=== PATIENT | male | born 1990 | race Caucasian/White ===

== ENCOUNTER 2017-10-25 13:31 | Emergency (ER) | payer SELFPAY ==
[2017-10-25] MEDS ORDERED: Sodium Chloride 0.9% 1,000 ML IV SCH (13:45)
[2017-10-25] MEDS ORDERED: Lidocaine 1% 10 ML MDV INJECT ONE (13:45)
[2017-10-25] MEDS ORDERED: Midazolam 1 MG/ML 2 ML SDV IVPUSH ONE (13:45)
[2017-10-25] MEDS ORDERED: fentaNYL 100 MCG/2 ML SDV IVPUSH ONE (13:45)
--- NOTE | 2017-10-25 13:49 | EDM.PDOC ---
ED HPI GENERAL MEDICAL PROBLEM - General Chief Complaint: Laceration Stated Complaint: R ARM LAC Time Seen by Provider: 10/25/17 13:42 Source of Information: Reports: Patient History Limitations: Reports: No Limitations - History of Present Illness INITIAL COMMENTS - FREE TEXT/NARRATIVE: 77-year-old male presents the ED with an acute injury to his right distal forearm ulnar aspect. He actually has 2 wounds to the forearm. He reports that he went through a car door window glass. His resulted in deep laceration to the ulnar aspect of the right forearm with tendons and bone exposed and foreign bodies evident. Also deep laceration to the proximal extensor surface of the forearm which does not go down to the bone or exposed tendons. He has full sensation on his fingers. 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 Clinically the tendons appear to be intact. The wound is heavily contaminated however. Last tetanus toxoid was about 2 years ago. Of note patient is right-hand dominant. Onset: Today Onset Date: 10/25/17 Onset Time: 13:00 Duration: Minutes: Location: Reports: Upper Extremity, Right (Right upper extremity wounds to the forearm.) Quality: Reports: Ache, Stabbing Severity: Moderate Improves with: Reports: None Worsens with: Reports: Movement Context: Reports: Trauma. 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: Other (see below) (None.) Right Lower Arm Pain Score (Numeric/FACES): 10 - Related Data Allergies Allergy/AdvReac Type Severity Reaction Status Date / Time No Known Allergies Allergy Verified 10/25/17 15:37 Home Meds: Home Meds Doxycycline [Vibramycin] 100 mg PO BID #20 cap 10/25/17 [Rx] Past Medical History - Past Health History Medical/Surgical History: Denies Medical/Surgical History Social & Family History - Family History Family Medical History: Noncontributory - Tobacco Use Smoking Status *Q: Never Smoker - Recreational Drug Use Recreational Drug Use: No - Living Situation & Occupation Occupation: Employed ED ROS GENERAL - Review of Systems Review Of Systems: See Below Constitutional: Reports: No Symptoms HEENT: Reports: No Symptoms Respiratory: Reports: No Symptoms Cardiovascular: Reports: No Symptoms Endocrine: Reports: No Symptoms GI/Abdominal: Reports: No Symptoms : Reports: No Symptoms Musculoskeletal: Reports: Other (Acute soft tissue injuries to the right forearm in 2 places.) Skin: Reports: Other (Lacerations to right forearm) Neurological: Reports: No Symptoms Psychiatric: Reports: No Symptoms Hematologic/Lymphatic: Reports: No Symptoms ED EXAM, SKIN/RASH Exam: See Below Exam Limited By: No Limitations General Appearance: Alert, Moderate Distress (Very anxious and distressed.) Peripheral Pulses: 3+: Radial (R) Extremities: Other (Injuries to the right forearm appreciated. Has a deep gouge laceration to the distal extensor surface of the forearm with exposed tendons extensor surface and ulnar surface. His railroad wheels and axle inspector strength is still full. He has full sensation in his ulnar and radial nerve distributions. He has a second laceratio 3.5 cm proximal extensor for surface of the forearm. Both wounds will have to be cleansed and sutured. The distal wound will have to be explored and irrigated extensively. It will also take complex closure.) Neurological: Alert, Oriented, CN II-XII Intact, Normal Cognition, Normal Gait Psychiatric: Normal Affect, Normal Mood Skin: Warm, Dry, Intact, Normal Color, No Rash ED SKIN PROCEDURES - Laceration/Wound Repair Right Upper Proximal Arm Lac/Wound length In cm: 3.5 Appearance: Subcutaneous, Mildly Contaminated Distal NVT: Neuro & Vascular Intact, No Tendon Injury Anesthetic Type: Local Local Anesthesia - Lidocaine (Xylocaine): 1% Plain Local Anesthetic Volume: Other (10 mL) Skin Prep: Saline Saline Irrigation (cc's): 150 Closed with: Sutures Suture Size: 3-0 # of Sutures: 9 Suture Type: Nylon, Interrupted, Simple Course - Vital Signs Last Recorded V/S: Last Vital Signs Temp 36.2 C 10/25/17 13:38 Pulse 72 10/25/17 13:38 Resp 16 10/25/17 13:38 BP 101/84 10/25/17 13:38 Pulse Ox 99 10/25/17 13:38 - Orders/Labs/Meds Orders: Active Orders 24 hr Category Date Time Status Forearm 2V Rt [CR] Stat Exams 10/25/17 13:46 Taken Meds: Medications Discontinued Medications Generic Name Dose Route Start Last Admin Trade Name Freq PRN Reason Stop Dose Admin Doxycycline Hyclate 200 mg 10/25/17 15:37 10/25/17 15:51 Vibramycin PO 10/25/17 15:38 200 mg ONETIME ONE Administration Fentanyl 100 mcg 10/25/17 13:45 10/25/17 14:07 Sublimaze IVPUSH 10/25/17 13:46 100 mcg ONETIME ONE Administration Sodium Chloride 1,000 mls @ 150 mls/hr 10/25/17 13:45 10/25/17 13:58 Normal Saline IV 150 mls/hr ASDIRECTED HARJINDER Administration Cefazolin Sodium/Dextrose 1 gm 50 mls @ 100 mls/hr 10/25/17 13:53 10/25/17 14 :06 / Premix IV 10/25/17 14:22 100 mls/hr ONETIME ONE Administration Lidocaine HCl 20 ml 10/25/17 13:45 10/25/17 14:06 Xylocaine 1% INJECT 10/25/17 13:46 20 ml ONETIME ONE Administration Lidocaine HCl 20 ml 10/25/17 14:29 10/25/17 14:42 Xylocaine 1% INJECT 10/25/17 14:30 Not Given ONETIME ONE Lidocaine HCl Confirm 10/25/17 14:31 Xylocaine 1% Administered 10/25/17 14:32 Dose 50 ml .ROUTE .STK-MED ONE Midazolam HCl 2 mg 10/25/17 13:45 10/25/17 14:06 Versed 1 Mg/Ml IVPUSH 10/25/17 13:46 2 mg ONETIME ONE Administration - Radiology Interpretation Free Text/Narrative:: 27-year-old male presents to the ED with an acute injuries to his right forearm. Essentially punched through a window of bone window of a vehicle. This resulted in deep lacerations down to the tendons distal right forearm and a deep laceration to the proximal extensor surface of the forearm. Tetanus toxoid is up-to-date. An IV normal saline 150 mils per hour. Versed 2 mg IV with fentanyl 100 g IV for relief of pain and to provide some degree of sedation. Wounds will then be anesthetized with 1% lidocaine and explored and then primarily closed if possible. He will be given Ancef 1 g IV. - Re-Assessments/Exams Free Text/Narrative Re-Assessment/Exam: 10/25/17 14:07 x-ray of the forearm reveals 3 pieces of broken off glass within the wound. 2 over the dorsal aspect of the radius 1 over the ulna. There is a small splinter glass sitting on the surface of the skin near opening of the wound. These all are in the distal wound on the forearm. Proximal wound showed no evidence of glass within it. We'll proceed with semi-conscious sedation with fentanyl and Versed. Wound should be anesthetized with 1% lidocaine. The distal wound will require layer closure with Vicryl and Ethilon suture. 10/25/17 15:48 Completed laceration repair right forearm. Remote 3 large pieces of glass from the wound at the time of exploration of the wound and assessment of tendons. Tendons were explored 1 inch above and below the wound with movement of his finger with opening and closing and no lacerations of the tendons were identified. Proximal wound is 3.5 cm and sutured 9. Distal extensor surface ulnar surface of the forearm wound 8.0 cm very stellate. Multiple skin flaps replaced. Extensive debridement of subcutaneous tissue and skin to provide wound closure. Used 6 4-0 Vicryl sutures subcutaneously. Patient received Ancef 1 g intravenously during the procedure. He receives mild constipation with 2 mg of Versed and 100 g of fentanyl at the beginning of the procedure. Discharged home after wound was cleansed and topical antibiotic and Telfa pads placed and then Guerline and then Emeka wrap. He will be a toxic and 100 mg twice daily for 10 days. Motrin 600 mg every 6 hours needed for pain relief. Ice pack to the area for one half hour out of every 2 hours tonight to reduce swelling. Will have limited use of his right hand due to forearm pain for 3-5 days. Sutures will need to be removed in 12 days time. l 10/25/17 20:02 Departure - Departure Time of Disposition: 15:37 Disposition: Home, Self-Care 01 Condition: Fair Clinical Impression: Laceration of forearm with foreign body Qualifiers: Encounter type: initial encounter Laterality: right Qualified Code(s): S51.821A - Laceration with foreign body of right forearm, initial encounter - Discharge Information Prescriptions: Doxycycline [Vibramycin] 100 mg PO BID #20 cap Instructions: Laceration Care, Adult, [id number] Forms: ED Department Discharge Additional Instructions: Evaluation the emergency room today in regards to deep lacerations to the right forearm that occurred when you put your right forearm and elbow through a tempered glass window of a vehicle car door. This resulted in multiple small lacerations throughout the extensor surface of the forearm that were left to heal on their own. Deeper 3.5 cm laceration proximal or upper forearm was sutured 9 to close the wound. X-rays of forearm did reveal 3 pieces of broken tempered glass within the wound on your distal or lower forearm wound. These were removed during the procedure. Tendons were exposed on 3 different parts of the forearm but all were intact without any signs of laceration. The tendencies that they run through were lacerated however in this were good deal of pain comes from. The lower wound was closed in 2 layers using Vicryl initially and then 22 sutures to close a complex 8 0 centimeter jagged laceration. You were given initial dose of metabolic in the ED Ancef 1 g. You need to take toxic and 100 mg tonight and one tablet tomorrow morning that were provided to the ED as it is a holiday. After this she will have to fill up her prescription for antibiotic doxycycline 100 mg twice daily for 10 days. Suggest initial Emeka wrap and bandage can stay on place for 2 days. Then imaged the wounds should be cleansed daily with soap and water. Showering is okay. Then apply topical anabolic such as Polysporin or bacitracin to the wounds and cover with bandages clean. Tonight I would suggest ice pack to the area one half hour out of every 2 hours until bedtime. May use the hand as able tomorrow but it will of course be stiff and sore for several days until the wound heals usually 3-4 days. Motrin 600 mg every 6 hours needed for pain relief. Sutures will need to be removed in 12 days time. Return to medical care if any signs of infection develop such as increased redness swelling or obvious pus from the wound. - My Orders Last 24 Hours: My Active Orders 10/25/17 13:46 Forearm 2V Rt [CR] Stat - Assessment/Plan Last 24 Hours: My Active Orders 10/25/17 13:46 Forearm 2V Rt [CR] Stat ED LACERATION/WOUND PROCEDURES - Laceration/Wound Repair Right Lower Distal Arm Laceration/Wound Length In cm: 8.0 (Distal extensor ulnar surface of forearm.) Appearance: Irregular, Moderately Contaminated (Remove 3 large pieces of tempered window glass from the wound. This correlated with the ones identified on x-ray prior to procedure) Distal NVT: Neuro & Vascular Intact, Other (Tendons were exposed tendon sheaths were lacerated. Check attendance 1 inch above and below the laceration with no evidence of tendon cut. Has full range of motion of all of his fingers in his right hand.) Anesthetic Type: Local Local Anesthesia - Lidocaine (Xylocaine): 1% Plain Local Anesthetic Volume: Other (25) Skin Prep: Saline Saline Irrigation Total cc's: 250 Wound Exploration, Debridement, Revision: Extensive Debridement, Foreign Material Removed, Wound Margins Revised, Other (Complex laceration repair) Suture Size: 3-0 # of Sutures: 22 Suture Type: Nylon, Interrupted, Simple # of Sutures: 6 Subcutaneous Repair With: Vicryl
[2017-10-25] MEDS ORDERED: ceFAZolin 1 GM in Premix Bag 1 BAG IV ONE (13:53)
[2017-10-25] MEDS ORDERED: Lidocaine 1% 20 ML MDV INJECT ONE (14:29)
[2017-10-25] MEDS ORDERED: Lidocaine 1% 50 ML MDV ONE (14:31)
[2017-10-25] MEDS ORDERED: Doxycycline 100 MG Cap PO ONE (15:37)
--- NOTE | 2017-10-26 07:18 | CR ---
Right forearm: Three views of the right forearm were obtained. Soft tissue injury is identified within the distal forearm. Multiple foreign bodies are seen within the soft tissues. No acute bony abnormality is identified. Impression: 1. Distal soft tissue injury with adjacent foreign bodies within the soft tissues. Diagnostic code #3
== END 2017-10-25 15:52 | disposition home or self-care (01) ==
LOC: JD.ED 13:31
DX: S51.821A Laceration with foreign body of right forearm, initial encounter (principal); W25.XXXA Contact with sharp glass, initial encounter
CPT/HCPCS: 13121; 13122; 73090; 96361; 96365; 96375; 99284; A9270; J0690; J2250; J3010; J7040; 12042; 13132; 99283

== ENCOUNTER 2020-07-28 16:54 | Emergency (ER) | payer OTHER ==
--- NOTE | 2020-07-28 17:25 | EDM.PDOC ---
ED HPI GENERAL MEDICAL PROBLEM - General Chief Complaint: Respiratory Problem Stated Complaint: SOB/COVID SYMPTOMS Time Seen by Provider: 07/28/20 17:24 - History of Present Illness INITIAL COMMENTS - FREE TEXT/NARRATIVE: 30-year-old male presents the emergency room with concerns of having Covid. Patient has shortness of breath that is exertional. He has difficulty walking upstairs where before he did not. Patient is also had some gastroenteritis symptoms for the last 2 days. He has not been able to keep anything down today. The patient's [id number] was diagnosed with influenza several days ago. However they have not had direct contact for about a week. The patient's kids have had what sounds like gastroenteritis. The patient has not been able to keep anything down today soon as he drinks water comes right back up and yesterday his intake was significantly diminished. Patient also states that he is achy all over. Generalized Pain Score (Numeric/FACES): 8 - Related Data Allergies Allergy/AdvReac Type Severity Reaction Status Date / Time No Known Allergies Allergy Verified 10/25/17 15:37 Home Meds: Home Meds Doxycycline [Vibramycin] 100 mg PO BID #20 cap 10/25/17 [Rx] Ondansetron [Ondansetron ODT] 8 mg PO ASDIRECTED PRN #10 tab.rapdis 07/28/20 [Rx] Past Medical History - Past Health History Medical/Surgical History: Denies Medical/Surgical History Social & Family History - Family History Family Medical History: No Pertinent Family History - Tobacco Use Tobacco Use Status *Q: Never Tobacco User Second Hand Smoke Exposure: No - Caffeine Use Caffeine Use: Reports: Coffee - Recreational Drug Use Recreational Drug Use: No - Living Situation & Occupation Occupation: Employed ED ROS GENERAL - Review of Systems Review Of Systems: See Below Constitutional: Reports: Malaise, Weakness HEENT: Reports: No Symptoms Respiratory: Reports: Shortness of Breath. Denies: No Symptoms, Cough Cardiovascular: Reports: No Symptoms Endocrine: Reports: No Symptoms GI/Abdominal: Reports: Nausea, Vomiting. 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 No: Lymphadenopathy (L), Lymphadenopathy (R) Respiratory/Chest: No Respiratory Distress, Lungs Clear, Normal Breath Sounds Cardiovascular: Regular Rate, Rhythm, No Edema, No Murmur GI/Abdominal: Normal Bowel Sounds, Soft, Non-Tender Extremities: Normal Inspection, No Pedal Edema Neurological: Alert, Oriented, Normal Cognition Psychiatric: Normal Affect Lymphatic: No Adenopathy Course - Vital Signs Last Recorded V/S: Last Vital Signs Temp 36.4 C 07/28/20 17:05 Pulse 97 07/28/20 17:05 Resp 18 07/28/20 17:05 BP 133/79 07/28/20 17:05 Pulse Ox 98 07/28/20 17:05 - Orders/Labs/Meds Orders: Active Orders 24 hr Category Date Time Status Chest 1V Frontal [CR] Stat Exams 07/28/20 18:00 Taken Lactated Ringers [Ringers, Lactated] 1,000 ml Med 07/28/20 18:22 Active IV .BOLUS Medication Orders Lactated Ringer's (Ringers, Lactated) 1,000 mls @ 999 mls/hr IV .BOLUS ONE Stop: 07/28/20 19:22 Last Admin: 07/28/20 18:32 Dose: 999 mls/hr Documented by: ALBINA Labs: Laboratory Tests 07/28/20 07/28/20 07/28/20 Range/Units 18:15 18:16 18:16 WBC 10.22 H (4.23-9.07) K/mm3 RBC 5.79 (4.63-6.08) M/mm3 Hgb 16.4 (13.7-17.5) gm/dl Hct 48.4 (40.1-51.0) % MCV 83.6 (79.0-92.2) fl MCH 28.3 (25.7-32.2) pg MCHC 33.9 (32.2-35.5) g/dl RDW Std Deviation 38.2 (35.1-43.9) fL Plt Count 205 (163-337) K/mm3 MPV 10.0 (9.4-12.3) fl Neut % (Auto) 85.7 H (34.0-67.9) % Lymph % (Auto) 6.1 L (21.8-53.1) % [place] % (Auto) 6.8 (5.3-12.2) % Eos % (Auto) 1.1 (0.8-7.0) Baso % (Auto) 0.2 (0.1-1.2) % Neut # (Auto) 8.76 H (1.78-5.38) K/mm3 Lymph # (Auto) 0.62 L (1.32-3.57) K/mm3 [place] # (Auto) 0.70 (0.30-0.82) K/mm3 Eos # (Auto) 0.11 (0.04-0.54) K/mm3 Baso # (Auto) 0.02 (0.01-0.08) K/mm3 Manual Slide Review Abnormal smear Sodium 142 (136-145) mEq/L Potassium 4.5 (3.5-5.1) mEq/L Chloride 104 (98-107) mEq/L Carbon Dioxide 27 (21-32) mEq/L Anion Gap 15.5 H (5-15) BUN 14 (7-18) mg/dL Creatinine 1.1 (0.7-1.3) mg/dL Est Cr Clr Drug Dosing 104.58 mL/min Estimated GFR (MDRD) > 60 (>60) mL/min BUN/Creatinine Ratio 12.7 L (14-18) Glucose 100 (74-106) mg/dL Calcium 9.1 (8.5-10.1) mg/dL Total Bilirubin 0.7 (0.2-1.0) mg/dL AST 17 (15-37) U/L ALT 35 (16-63) U/L Alkaline Phosphatase 59 (46-116) U/L C-Reactive Protein (<1.0) mg/dL Total Protein 7.7 (6.4-8.2) g/dl Albumin 4.2 (3.4-5.0) g/dl Globulin 3.5 gm/dL Albumin/Globulin Ratio 1.2 (1-2) Lipase 70 L (73-393) U/L Influenza Type A RNA Negative (NEGATIVE) Influenza Type B RNA Negative (NEGATIVE) SARS-CoV-2 RNA (SAMINA) Negative (NEGATIVE) 07/28/20 Range/Units 18:16 WBC (4.23-9.07) K/mm3 RBC (4.63-6.08) M/mm3 Hgb (13.7-17.5) gm/dl Hct (40.1-51.0) % MCV (79.0-92.2) fl MCH (25.7-32.2) pg MCHC (32.2-35.5) g/dl RDW Std Deviation (35.1-43.9) fL Plt Count (163-337) K/mm3 MPV (9.4-12.3) fl Neut % (Auto) (34.0-67.9) % Lymph % (Auto) (21.8-53.1) % [place] % (Auto) (5.3-12.2) % Eos % (Auto) (0.8-7.0) Baso % (Auto) (0.1-1.2) % Neut # (Auto) (1.78-5.38) K/mm3 Lymph # (Auto) (1.32-3.57) K/mm3 [place] # (Auto) (0.30-0.82) K/mm3 Eos # (Auto) (0.04-0.54) K/mm3 Baso # (Auto) (0.01-0.08) K/mm3 Manual Slide Review Sodium (136-145) mEq/L Potassium (3.5-5.1) mEq/L Chloride (98-107) mEq/L Carbon Dioxide (21-32) mEq/L Anion Gap (5-15) BUN (7-18) mg/dL Creatinine (0.7-1.3) mg/dL Est Cr Clr Drug Dosing mL/min Estimated GFR (MDRD) (>60) mL/min BUN/Creatinine Ratio (14-18) Glucose (74-106) mg/dL Calcium (8.5-10.1) mg/dL Total Bilirubin (0.2-1.0) mg/dL AST (15-37) U/L ALT (16-63) U/L Alkaline Phosphatase (46-116) U/L C-Reactive Protein 1.5 H* (<1.0) mg/dL Total Protein (6.4-8.2) g/dl Albumin (3.4-5.0) g/dl Globulin gm/dL Albumin/Globulin Ratio (1-2) Lipase (73-393) U/L Influenza Type A RNA (NEGATIVE) Influenza Type B RNA (NEGATIVE) SARS-CoV-2 RNA (SAMINA) (NEGATIVE) Meds: Medications Generic Name Dose Route Start Last Admin Trade Name Freq PRN Reason Stop Dose Admin Lactated Ringer's 1,000 mls @ 999 mls/hr 07/28/20 18:22 07/28/20 18:32 Ringers, Lactated IV 07/28/20 19:22 999 mls/hr .BOLUS ONE Administration Discontinued Medications Generic Name Dose Route Start Last Admin Trade Name Freq PRN Reason Stop Dose Admin Ondansetron HCl 4 mg 07/28/20 18:22 07/28/20 18:33 Zofran IVPUSH 07/28/20 18:23 4 mg ONETIME ONE Administration Ondansetron HCl 8 mg 07/28/20 19:16 Zofran Odt PO 07/28/20 19:17 ONETIME ONE - Re-Assessments/Exams Free Text/Narrative Re-Assessment/Exam: 07/28/20 18:31 Labs ordered we will check for influenza and Covid. 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 07/28/20 19:17 Patient feels much better after getting some IV fluids and some Zofran. Influenza screen is negative Covid is negative chest x-ray is negative for acute cardiopulmonary changes laboratory evaluation is nondiagnostic C-reactive protein is minimally elevated at 1.5. I suspect overall he has a viral gastroenteritis. Departure - Departure Time of Disposition: 19:18 Disposition: Home, Self-Care 01 Clinical Impression: Viral gastroenteritis - Discharge Information Forms: ED Department Discharge Additional Instructions: Return to the emergency room with any questions problems or worsening symptoms. Push lots of fluids. You have been given a prescription for Zofran, or ondansetron, the generic for Zofran take 1/2 to 1 tablet every 6 hours as needed for nausea and vomiting. Sepsis Event Note (ED) - Evaluation Sepsis Screening Result: No Definite Risk - Focused Exam Vital Signs: Vital Signs Temp Pulse Resp BP Pulse Ox 07/28/20 17:05 36.4 C 97 18 133/79 98 - My Orders Last 24 Hours: My Active Orders 07/28/20 18:00 Chest 1V Frontal [CR] Stat 07/28/20 18:22 Lactated Ringers [Ringers, Lactated] 1,000 ml IV .BOLUS - Assessment/Plan Last 24 Hours: My Active Orders 07/28/20 18:00 Chest 1V Frontal [CR] Stat 07/28/20 18:22 Lactated Ringers [Ringers, Lactated] 1,000 ml IV .BOLUS
[2020-07-28] MEDS ORDERED: Lactated Ringers 1,000 ML IV ONE (18:22)
[2020-07-28] MEDS ORDERED: Ondansetron 4 MG/2 ML SDV IVPUSH ONE (18:22)
[2020-07-28 18:55] LABS: CORONAVIRUS COVID-19 NAA NEGATIVE (NEGATIVE)
[2020-07-28] MEDS ORDERED: Ondansetron 4 MG Tab.DIS PO ONE (19:16)
--- NOTE | 2020-07-29 06:39 | CR ---
Chest: Portable view of the chest was obtained. Comparison: No prior chest imaging is available. Heart size and mediastinum are normal. Lungs are clear with no acute parenchymal change. Bony structures are grossly intact. Impression: 1. Nothing acute is appreciated on portable chest x-ray. Diagnostic code #1
== END 2020-07-28 19:34 | disposition home or self-care (01) ==
LOC: JD.ED 16:54
DX: A08.4 Viral intestinal infection, unspecified (principal); Z20.822 Contact with and (suspected) exposure to COVID-19
CPT/HCPCS: 0240U; 36415; 71045; 80053; 83690; 85025; 86140; 96374; 99285; A9270; J2405; J7120; 99283